=== PATIENT | female | born 1985 | race African-American/Black ===

== ENCOUNTER 2017-08-16 09:06 | Emergency (ER) | payer OTHER | END 2017-08-16 12:25 | disposition home or self-care (01) | LOC: ERS 09:06 | DX: J06.9 Acute upper respiratory infection, unspecified (principal); G43.909 Migraine, unspecified, not intractable, without status migrainosus; F32.9 Major depressive disorder, single episode, unspecified | CPT/HCPCS: 99283 ==

== ENCOUNTER 2017-09-12 12:14 | Inpatient (IN) | payer OTHER ==
[2017-09-12] MEDS ORDERED: Morphine 4 MG/ML VIAL ONE (13:21)
[2017-09-12] MEDS ORDERED: Ondansetron HCl/PF 4 MG/2 ML Vial ONE ×3 (13:21→15:23)
[2017-09-12 13:31] LABS: #Basophils 0.1 thou/uL (0.0-0.2); #Lymphocytes 1.5 thou/uL (1.20-3.40); #Monocytes 0.3 thou/uL (0.11-0.59); %Basophils 1.3 % (0.0-1.0); %Eosinophils 0.6 % (0.0-10.0); %Lymphocytes 25.6 % (21.0-51.0); %Monocytes 5.5 % (0.0-10.0); Hemoglobin 13.2 g/dL (12.0-16.0); Mean Corpuscular HGB CONC 31.8 g/dL (32.0-36.0); Mean Corpuscular Volume 84.9 fl (81.0-99.0); Mean Platelet Volume 11.1 fL (7.4-10.4); Platelet Count 153 thou/uL (130-400); RBC Distribution Width 12.3 % (11.5-14.5); Red Blood Cell (RBC) Count 4.89 mill/uL (4.20-5.40); White Blood Cell (WBC) Count 5.9 thou/uL (4.8-10.8)
[2017-09-12 13:55] LABS: ALT (SGPT) 31 U/L (8-55); AST (SGOT) 20 U/L (5-34); Albumin 4.3 g/dL (3.5-5.0); Alkaline Phosphatase 84 U/L (40-150); Anion Gap 12 mmol/L (10-20); BUN (Urea Nitrogen) 13 mg/dL (7.0-18.7); Bilirubin, Total 0.5 mg/dL (0.2-1.2); Calc. Creatinine Clearance 0 mL/min (70-130); Calcium 9.3 mg/dL (7.8-10.44); Carbon Dioxide 26 mmol/L (22-29); Chloride 106 mmol/L (98-107); Estimated GFR-MDRD Greater than 90; Globulin 3.3 g/dL (2.4-3.5); Glucose 98 mg/dL (70-105); Potassium 3.8 mmol/L (3.5-5.1); Protein, Total 7.6 g/dL (6.0-8.3); Sodium 140 mmol/L (136-145)
[2017-09-12 14:17] LABS: Bilirubin Negative (Negative); Blood, Urine Negative (Negative); Clarity CLEAR (Clear); Glucose, Urine (Dipstick) Negative (Negative); Leukocyte Negative (Negative); Nitrite Negative (Negative); Protein, Urine (Dipstick) 30 mg/dL (Neg-Trace); Specific Gravity, Urine 1.018 (1.002-1.036); pH, Urine 7.5 (5.0-9.0)
[2017-09-12 14:19] LABS: Bacteria/HPF Rare-Few HPF (None Seen); Hyaline Casts/LPF 0-3 HYALINE CAST LPF (0-3 Hyaline); RBC/HPF 0-3 HPF (0-3); Squamous Epithelial 0-3 HPF (0-3); WBC/HPF 0-3 HPF (0-3)
[2017-09-12 14:20] LABS: Pregnancy Test - Urine (BHCG) Negative (Negative); Pregu Control Background? CLEAR/WHITE (CLR/WHITE); Pregu Control Bar Appear? YES (CONTROL BAR); Specific Gravity 1.018 (1.002-1.036)
[2017-09-12] MEDS ORDERED: Fentanyl 250 MCG/5 ML VIAL ONE (14:30)
[2017-09-12] MEDS ORDERED: Famotidine/PF 20 mg/2ml Vial ONE (14:30)
[2017-09-12] MEDS ORDERED: Fentanyl 100 MCG/2 ML VIAL ONE (14:37)
--- NOTE | 2017-09-12 14:50 | RAD ---
RIGHT HUMERUS ONE VIEW: History: 32-year-old female with history of right upper arm deformity. There is a considerably displaced and a ngulated spiral fracture of the distal humeral diaphysis visualized in this single projection. IMPRESSION: Displaced abnormally angulated small fracture of the distal right humeral diaphysis. POS: ARI
--- NOTE | 2017-09-12 14:52 | RAD ---
RIGHT FOREARM TWO VIEWS: FINDINGS: Limited views of the forearm demonstrate no evidence for acute forearm fracture. The small displaced fracture of the distal humeral shaft is only partially visualized. There is a faint linear lucency th rough the distal ulna epiphysis region which I favor to be residual from the epiphysis. I do not thin k that this represents a fracture. There is no associated soft tissue swelling, however, if the patie nt is point tender over this region then a follow up wrist series might be of benefit. IMPRESSION: No evidence for acute forearm fracture. POS: ARI
[2017-09-12] MEDS ORDERED: CEFAZOLIN/Water 2 GM/20 ML SYRINGE ONE (15:04)
--- NOTE | 2017-09-12 15:09 | RAD ---
RIGHT HUMERUS ONE VIEW LIMITED SURVEY History/IMPRESSION: Spiral fracture distal humeral diaphysis is noted with some improvement in the position and alignment from the earlier studies. There is still some foreshortening and angulation deformity. POS: ARI
--- NOTE | 2017-09-12 15:19 | RAD ---
RIGHT HUMERUS ONE VIEW: History: 32-year-old female with history of right humeral injury. Comparison: 09-12-17 FINDINGS: There is again noted to be a displaced spiral fracture of the distal humeral diaphysis with slightly less foreshortening and less angulation deformity than on the prior study. IMPRESSION: Displaced and angulated spiral fracture distal humeral diaphysis but improved in position from the pr ior study. POS: ARI
[2017-09-12] MEDS ORDERED: Glycopyrrolate 0.2 MG/ML 5 ML SYRINGE ONE (15:23)
[2017-09-12] MEDS ORDERED: Lidocaine 1% PF 5 ML VIAL ONE (15:23)
[2017-09-12] MEDS ORDERED: Dexamethasone 20 MG/5 ML VIAL ONE (15:23)
[2017-09-12] MEDS ORDERED: PROPOFOL 200 MG/20 ML VIAL ONE (15:23)
[2017-09-12] MEDS ORDERED: Ketorolac Tromethamine 30 MG/ML VIAL ONE (15:23)
[2017-09-12] MEDS ORDERED: Promethazine HCl 25 MG/ML VIAL SLOW IVP PRN (15:52)
[2017-09-12] MEDS ORDERED: Ondansetron HCl/PF 4 MG/2 ML Vial IVP PRN (15:52)
[2017-09-12] MEDS ORDERED: Promethazine HCl 25 MG/ML VIAL IM PRN (15:52)
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
[2017-09-12] MEDS ORDERED: Meperidine HCl/PF 25 MG/ML VIAL SLOW IVP PRN (16:52)
[2017-09-12] MEDS ORDERED: HYDROmorphone 2 MG/ML VIAL SLOW IVP PRN (16:52)
[2017-09-12] MEDS ORDERED: Ondansetron ODT 4 MG TAB PO PRN (16:57)
[2017-09-12] MEDS ORDERED: Zolpidem Tartrate 5 MG TAB PO PRN (16:57)
[2017-09-12] MEDS ORDERED: HYDROcodone/Acetaminophen 10/325 mg Tablet PO PRN (16:57)
[2017-09-12] MEDS ORDERED: Fentanyl 100 MCG/2 ML VIAL SLOW IVP PRN (17:01)
[2017-09-12] MEDS ORDERED: HYDROmorphone 0.5 MG/0.5 ML SYRINGE ONE (17:28)
--- NOTE | 2017-09-12 17:34 | OP ---
PREOPERATIVE DIAGNOSIS: Humerus fracture, right. POSTOPERATIVE DIAGNOSIS: Humerus fracture, right. SURGEON: Alfonzo Reagan M.D. SURGICAL SCRUB TECH: None. BLOOD LOSS: About 100. SPECIMEN: None. DRAINS: None. COMPLICATIONS: None. DESCRIPTION OF PROCEDURE: After appropriate consent was obtained, the patient was taken to the [facility] where general anesthesia was induced. The patient was placed in left lateral decubitus position . Right arm was prepped and draped in the usual sterile fashion. No tourniquet was used. I made a posterior triceps splitting incision approach. Fracture was identified and removed hematoma and musc le from the bone fragments. Fracture was anatomically reduced and clamped under direct visualization , I placed three lateral to medial and medial to lateral lag screws total. I then used the metaphyse s plate posteriorly to reinforce the repair. X-rays were obtained which showed appropriate reduction and screw length. Irrigation was performed. She was prepped with 0 Vicryl, subcutaneous closed wit h 2-0 Vicryl, the skin was closed with ewelina. The patient was placed in a bulky dressing and a pos terior splint. There were no complications.
--- NOTE | 2017-09-12 18:08 | RAD ---
INTRAOPERATIVE RADIOGRAPHS OF RIGHT HUMERUS: Date: 09-12-17 History: ORIF FINDINGS: The previously noted oblique fracture of the distal right humeral shaft has been treated with a screw and plate fixation. Alignment is normal at the fracture site. IMPRESSION: ORIF as above. POS: VENECIA
[2017-09-12 18:23] VITALS: BMI 30.4
[2017-09-12] MEDS: Sodium Chloride 0.9% 1,000 ML IV SCH (20:52)
[2017-09-12] MEDS: HYDROcodone/Acetaminophen 10/325 mg Tablet PO PRN (20:53)
[2017-09-12] MEDS ORDERED: FLU VACC QS2017-18 36 mo. & older 0.5 ML SYRINGE IM ONE (21:00)
[2017-09-12] MEDS: CEFAZOLIN/Water 2 GM/20 ML SYRINGE SLOW IVP SCH (22:19)
[2017-09-13] MEDS: HYDROcodone/Acetaminophen 10/325 mg Tablet PO PRN ×2 (00:53→05:22)
[2017-09-13 04:23] VITALS: TEMP 98.3
[2017-09-13] MEDS: CEFAZOLIN/Water 2 GM/20 ML SYRINGE SLOW IVP SCH (04:28)
[2017-09-13 07:48] VITALS: BP 122/81
[2017-09-13] MEDS ORDERED: Enoxaparin Sodium 30 MG/0.3 ML SYRINGE SC SCH (09:00)
[2017-09-13] MEDS: Sodium Chloride 0.9% 1,000 ML IV SCH (09:40)
== END 2017-09-13 11:33 | disposition home or self-care (01) | DRG 494 ==
LOC: ERS 12:14 → SURG A 14:28
PROVIDERS: ADMIT Orthopaedic Surgery; ATTEND Orthopaedic Surgery
PROC: 0PSF04Z Reposition Right Humeral Shaft with Internal Fixation Device, Open Approach (ICD-10-PCS; principal; 2017-09-12)
DX: S42.341A Displaced spiral fracture of shaft of humerus, right arm, initial encounter for closed fracture (principal); F32.9 Major depressive disorder, single episode, unspecified; W01.0XXA Fall on same level from slipping, tripping and stumbling without subsequent striking against object, initial encounter; G43.909 Migraine, unspecified, not intractable, without status migrainosus
CPT/HCPCS: 36415; 76001; 80053; 81003; 81015; 81025; 85025; 96361; 96374; 96375; C1713; G0390; J0131; J1100; J1170; J1650; J1885; J2001; J2270; J2405; J2704; J3010; S0028

== ENCOUNTER 2017-10-27 17:35 | Emergency (ER) | payer OTHER ==
[2017-10-27 19:16] LABS: #Basophils 0.1 thou/uL (0.0-0.2); #Eosinphils 0.1 thou/uL (0.0-0.7); #Lymphocytes 2.1 thou/uL (1.20-3.40); #Monocytes 0.3 thou/uL (0.11-0.59); #Neutrophils 3.2 thou/uL (1.40-6.50); %Basophils 1.2 % (0.0-1.0); %Eosinophils 1.9 % (0.0-10.0); %Lymphocytes 36.1 % (21.0-51.0); %Monocytes 5.5 % (0.0-10.0); %Neutrophils 55.2 % (42.0-75.0); Hemoglobin 12.6 g/dL (12.0-16.0); Mean Corpuscular HGB CONC 32.6 g/dL (32.0-36.0); Mean Corpuscular Hemoglobin 27.2 pg (27.0-31.0); Mean Corpuscular Volume 83.4 fl (81.0-99.0); Mean Platelet Volume 10.8 fL (7.4-10.4); Platelet Count 162 thou/uL (130-400); RBC Distribution Width 12.8 % (11.5-14.5); Red Blood Cell (RBC) Count 4.65 mill/uL (4.20-5.40); White Blood Cell (WBC) Count 5.8 thou/uL (4.8-10.8)
[2017-10-27 19:24] LABS: ALT (SGPT) 43 U/L (8-55); AST (SGOT) 23 U/L (5-34); Albumin 4.2 g/dL (3.5-5.0); Alkaline Phosphatase 124 U/L (40-150); Anion Gap 12 mmol/L (10-20); BUN (Urea Nitrogen) 13 mg/dL (7.0-18.7); Bilirubin, Total 0.4 mg/dL (0.2-1.2); Calc. Creatinine Clearance 0 mL/min (70-130); Calcium 9.2 mg/dL (7.8-10.44); Carbon Dioxide 26 mmol/L (22-29); Chloride 106 mmol/L (98-107); Estimated GFR-MDRD Greater than 90; Globulin 2.9 g/dL (2.4-3.5); Glucose 112 mg/dL (70-105); Potassium 3.9 mmol/L (3.5-5.1); Protein, Total 7.1 g/dL (6.0-8.3); Sodium 140 mmol/L (136-145)
[2017-10-27 19:25] LABS: CK (CPK) 118 U/L (29-168); CRP (Inflammatory) Less than 0.50 mg/dL (= or < 0.5)
[2017-10-27] MEDS ORDERED: Morphine 4 MG/ML VIAL ONE (19:50)
--- NOTE | 2017-10-27 20:38 | RAD ---
FRONTAL AND LATERAL IMAGING OF THE RIGHT HUMERUS 10/27/17 COMPARISON: 09/12/17 HISTORY: Recent fracture. FINDINGS: There is lateral screw and plate fixation associated with the mid shaft and distal shaft of the right humerus. There is no evidence for hardware failure, new fracture, or dislocation. IMPRESSION: Evidence of open reduction and internal fixation of previously noted distal right humeral fracture. T he elbow is not well assessed on this exam. POS: VENECIA
== END 2017-10-27 20:58 | disposition home or self-care (01) ==
LOC: ERS 17:35
DX: M25.521 Pain in right elbow (principal); F32.9 Major depressive disorder, single episode, unspecified; G43.909 Migraine, unspecified, not intractable, without status migrainosus
CPT/HCPCS: 80053; 82550; 85025; 85652; 86140; 96374; J2270

== ENCOUNTER 2018-08-07 09:25 | Emergency (ER) | payer OTHER | END 2018-08-07 11:02 | disposition home or self-care (01) | LOC: ERS 09:25 | DX: J20.9 Acute bronchitis, unspecified (principal) | CPT/HCPCS: 87804; 94640; J7620 ==

== ENCOUNTER 2018-11-14 22:55 | Emergency (ER) | payer OTHER ==
--- NOTE | 2018-11-15 00:41 | RAD ---
2 views right humerus. HISTORY: Right humeral injury. AP and lateral views right humerus obtained. The patient's had a previous plates and numerous screws. The previously noted distal right humeral fr acture has healed. No evidence of residual fracture seen. No other bony abnormality seen. IMPRESSION: previous healed fracture with plates and screws in place.
== END 2018-11-15 01:18 | disposition home or self-care (01) ==
LOC: ERS 22:55
DX: M79.621 Pain in right upper arm (principal); G43.909 Migraine, unspecified, not intractable, without status migrainosus; X50.9XXA Other and unspecified overexertion or strenuous movements or postures, initial encounter

== ENCOUNTER 2019-05-01 20:45 | Emergency (ER) | payer OTHER ==
[2019-05-01] MEDS ORDERED: Metoclopramide HCl 10 MG/2 ML VIAL ONE (22:12)
[2019-05-01] MEDS ORDERED: Ketorolac Tromethamine 30 MG/ML VIAL ONE (22:12)
[2019-05-01] MEDS ORDERED: diphenhydrAMINE 50 MG/ML VIAL ONE (22:12)
== END 2019-05-01 23:35 | disposition home or self-care (01) ==
LOC: ERS 20:45
DX: R51 Headache (principal); F32.9 Major depressive disorder, single episode, unspecified
CPT/HCPCS: 96365; 96375; J1200; J1885; J2765

== ENCOUNTER 2019-06-03 21:50 | Emergency (ER) | payer OTHER | END 2019-06-03 23:05 | disposition home or self-care (01) | LOC: ERS 21:50 | DX: J11.1 Influenza due to unidentified influenza virus with other respiratory manifestations (principal) | CPT/HCPCS: 99283 ==

== ENCOUNTER 2019-10-18 20:55 | Emergency (ER) | payer OTHER ==
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
[2019-10-18] MEDS ORDERED: Adacel (T-DAP) 0.5 ML SYRINGE ONE ×2 (21:21→21:36)
[2019-10-18 21:22] LABS: #Basophils 0.1 thou/uL (0.0-0.2); #Lymphocytes 2.9 thou/uL (1.20-3.40); #Monocytes 0.5 thou/uL (0.11-0.59); #Neutrophils 4.8 thou/uL (1.40-6.50); %Basophils 1.7 % (0.0-1.0); %Eosinophils 0.5 % (0.0-10.0); %Lymphocytes 34.4 % (21.0-51.0); %Monocytes 5.7 % (0.0-10.0); %Neutrophils 57.7 % (42.0-75.0); Hemoglobin 11.6 g/dL (12.0-16.0); Mean Corpuscular Hemoglobin 27.5 pg (27.0-31.0); Mean Corpuscular Volume 83.1 fL (78.0-98.0); Mean Platelet Volume 11.8 fL (7.4-10.4); Platelet Count 198 thou/uL (130-400); RBC Distribution Width 12.5 % (11.5-14.5); Red Blood Cell (RBC) Count 4.23 mill/uL (4.20-5.40); White Blood Cell (WBC) Count 8.4 thou/uL (4.8-10.8)
[2019-10-18 21:28] LABS: BHCG - Serum Negative (NEGATIVE); Pregs Control Background? CLEAR/WHITE (CLR/WHITE); Pregs Control Bar Appear? YES (CONTROL BAR)
[2019-10-18 21:43] LABS: ALT (SGPT) 75 U/L (8-55); AST (SGOT) 38 U/L (5-34); Albumin 4.2 g/dL (3.5-5.0); Alkaline Phosphatase 133 U/L (40-110); Anion Gap 21 mmol/L (10-20); BUN (Urea Nitrogen) 18 mg/dL (7.0-18.7); Bilirubin, Total 0.4 mg/dL (0.2-1.2); Calc. Creatinine Clearance 0 mL/min (70-130); Calcium 9.7 mg/dL (7.8-10.44); Carbon Dioxide 18 mmol/L (22-29); Chloride 105 mmol/L (98-107); Estimated GFR-MDRD 87; Globulin 3.5 g/dL (2.4-3.5); Glucose 150 mg/dL (70-105); Protein, Total 7.7 g/dL (6.0-8.3); Sodium 141 mmol/L (136-145)
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
--- NOTE | 2019-10-18 23:12 | RAD ---
FOUR VIEWS OF THE RIGHT ELBOW: 10/18/19 HISTORY: Deep laceration to the elbow with elbow pain. FINDINGS: Three views of the right elbow shows the patient to be status post ORIF of the distal humerus. There is no evidence of acute fracture or dislocation. No degenerative changes are seen. No elbow effusion is present. IMPRESSION: No evidence of acute osseous abnormality. POS: EAA
[2019-10-18] MEDS ORDERED: Lidocaine 1% w/Epinephrine 1:100K 20 ML VIAL ONE (23:22)
== END 2019-10-19 02:02 | disposition home or self-care (01) ==
LOC: ERS 20:55
DX: S01.81XA Laceration without foreign body of other part of head, initial encounter (principal); G43.909 Migraine, unspecified, not intractable, without status migrainosus; F32.9 Major depressive disorder, single episode, unspecified; Y04.0XXA Assault by unarmed brawl or fight, initial encounter
CPT/HCPCS: 12015; 70450; 70486; 71045; 72125; 80053; 84703; 85025; 86850; 86900; 86901; 90471; 90715; 96365; J0690

== ENCOUNTER 2020-03-18 14:29 | Emergency (ER) | payer OTHER ==
[2020-03-18 15:13] LABS: #Basophils 0.1 thou/uL (0.0-0.2); #Eosinphils 0.1 thou/uL (0.0-0.7); #Monocytes 0.3 thou/uL (0.11-0.59); #Neutrophils 2.9 thou/uL (1.40-6.50); %Basophils 1.3 % (0.0-1.0); %Eosinophils 1.8 % (0.0-10.0); %Lymphocytes 37.8 % (21.0-51.0); %Monocytes 5.9 % (0.0-10.0); %Neutrophils 53.2 % (42.0-75.0); Hemoglobin 13.7 g/dL (12.0-16.0); Mean Corpuscular HGB CONC 32.5 g/dL (32.0-36.0); Mean Corpuscular Hemoglobin 26.9 pg (27.0-31.0); Mean Corpuscular Volume 82.9 fL (78.0-98.0); Mean Platelet Volume 12.1 fL (7.4-10.4); Platelet Count 168 thou/uL (130-400); RBC Distribution Width 13.4 % (11.5-14.5); Red Blood Cell (RBC) Count 5.07 mill/uL (4.20-5.40); White Blood Cell (WBC) Count 5.4 thou/uL (4.8-10.8)
[2020-03-18 15:31] LABS: Large Platelets SLIGHT; MDiff Complete? YES; Platelet Morphology Comment Appears Decreased; RBC Morphology Normal
[2020-03-18 15:32] LABS: ALT (SGPT) 34 U/L (8-55); AST (SGOT) 24 U/L (5-34); Albumin 4.4 g/dL (3.5-5.0); Alkaline Phosphatase 95 U/L (40-110); Anion Gap 14 mmol/L (10-20); BUN (Urea Nitrogen) 11 mg/dL (7.0-18.7); Bilirubin, Total 0.6 mg/dL (0.2-1.2); Calc. Creatinine Clearance 0 mL/min (70-130); Calcium 9.4 mg/dL (7.8-10.44); Carbon Dioxide 26 mmol/L (22-29); Chloride 105 mmol/L (98-107); Estimated GFR-MDRD 90; Globulin 3.3 g/dL (2.4-3.5); Glucose 85 mg/dL (70-105); Protein, Total 7.7 g/dL (6.0-8.3); Sodium 141 mmol/L (136-145)
[2020-03-18] MEDS ORDERED: Metoclopramide HCl 10 MG/2 ML VIAL ONE (15:47)
[2020-03-18] MEDS ORDERED: Ketorolac Tromethamine 30 MG/ML VIAL ONE (15:47)
[2020-03-18] MEDS ORDERED: diphenhydrAMINE 50 MG/ML VIAL ONE (15:47)
== END 2020-03-18 16:55 | disposition home or self-care (01) ==
LOC: ERS 14:29
DX: R51 Headache (principal); I10 Essential (primary) hypertension; F43.10 Post-traumatic stress disorder, unspecified; F32.9 Major depressive disorder, single episode, unspecified; Z79.899 Other long term (current) drug therapy
CPT/HCPCS: 36415; 80053; 84484; 85025; 96365; 96375; J1200; J1885; J2765

== ENCOUNTER 2020-04-05 07:35 | Outpatient (CLI) | payer OTHER ==
--- NOTE | 2020-04-05 11:33 | ULT ---
PELVIC ULTRASOUND: HISTORY: Amenorrhea. FINDINGS: Real-time imaging of the pelvis was obtained both transabdominally as well as with an endovaginal pro be. This shows a uterus measuring 6.2 cm in length. The endometrium is not thickened. It measures in the 3 mm range. The left ovary is not visualized. The right ovary is unremarkable. DOPPLER EVALUATION WITH SPECTRAL ANALYSIS: Normal flow is shown to the right ovary. IMPRESSION: 1. Retroverted uterus. 2. Nonvisualization of the left ovary. POS: DARNELL
== END 2020-04-05 07:36 | disposition home or self-care (01) ==
LOC: BICULT 07:35
PROVIDERS: ATTEND Family Medicine
DX: N91.1 Secondary amenorrhea (principal); N85.8 Other specified noninflammatory disorders of uterus
CPT/HCPCS: 76856

== ENCOUNTER 2021-06-14 07:55 | Emergency (ER) | payer OTHER ==
[2021-06-14 11:47] LABS: SARS-CoV-2 NAA Rapid Test DETECTED (NotDetected)
== END 2021-06-14 10:29 | disposition home or self-care (01) ==
LOC: ERS 07:55
DX: U07.1 COVID-19 (principal); B34.9 Viral infection, unspecified; I10 Essential (primary) hypertension; G43.909 Migraine, unspecified, not intractable, without status migrainosus
CPT/HCPCS: 0240U; 99284

== ENCOUNTER 2023-02-23 09:53 | Emergency (ER) | payer OTHER ==
[2023-02-23 10:22] LABS: #Eosinphils 0.1 thou/uL (0.0-0.7); #Monocytes 0.4 thou/uL (0.11-0.59); #Neutrophils 3.7 thou/uL (1.40-6.50); %Basophils 0.7 % (0.0-1.0); %Eosinophils 0.8 % (0.0-10.0); %Lymphocytes 29.3 % (21.0-51.0); %Monocytes 6.4 % (0.0-10.0); %Neutrophils 62.6 % (42.0-75.0); Hemoglobin 13.4 g/dL (12.0-16.0); Mean Corpuscular HGB CONC 31.9 g/dL (32.0-36.0); Mean Corpuscular Hemoglobin 26.4 pg (27.0-31.0); Mean Corpuscular Volume 82.7 fl (78.0-98.0); Mean Platelet Volume 13.2 fL (7.4-10.4); Platelet Count 170 10x3/uL (130-400); RBC Distribution Width 13.8 % (11.5-14.5); Red Blood Cell (RBC) Count 5.08 mill/uL (4.20-5.40); White Blood Cell (WBC) Count 5.9 10x3/uL (4.8-10.8)
[2023-02-23 10:37] LABS: Bacteria/HPF None Seen HPF (None Seen); Bilirubin Negative (Negative); Blood, Urine Negative (Negative); CAUTI Indications for Culture Pelvic or flank pain; Clarity Clear (Clear); Glucose, Urine (Dipstick) Normal (Negative); Ketone, Urine Negative (Negative); Leukocyte Negative Leu/uL (Negative); Nitrite Negative (Negative); Protein, Urine (Dipstick) Negative (Neg-Trace); RBC/HPF 0-3 HPF (0-3); Squamous Epithelial 0-3 HPF (0-3); Urobilinogen Normal mg/dL (Less than 2); WBC/HPF 0-3 HPF (0-3); pH, Urine 5.5 (5.0-9.0)
[2023-02-23] MEDS ORDERED: Morphine 4 MG/ML VIAL ONE (10:37)
[2023-02-23] MEDS ORDERED: Ondansetron PF 4 MG/2 ML Vial ONE (10:37)
[2023-02-23 10:39] LABS: Urine Culture Reflex No No
[2023-02-23 10:42] LABS: Pregnancy Test - Urine (BHCG) Negative (Negative); Pregu Control Background? CLEAR/WHITE (CLR/WHITE); Pregu Control Bar Appear? YES (CONTROL BAR)
[2023-02-23 10:52] LABS: ALT (SGPT) 35 U/L (8-55); AST (SGOT) 23 U/L (5-34); Albumin 4.5 g/dL (3.5-5.0); Alkaline Phosphatase 96 U/L (40-110); Anion Gap 12 mmol/L (10-20); BUN (Urea Nitrogen) 12 mg/dL (7.0-18.7); Bilirubin, Total 0.6 mg/dL (0.2-1.2); Calc. Creatinine Clearance 0 mL/min (70-130); Calcium 9.9 mg/dL (7.8-10.44); Carbon Dioxide 26 mmol/L (22-29); Chloride 105 mmol/L (98-107); Estimated GFR 80; Globulin 3.5 g/dL (2.4-3.5); Glucose 94 mg/dL (70-105); Lipase 10 U/L (8-78); Potassium 3.7 mmol/L (3.5-5.1); Sodium 139 mmol/L (136-145)
== END 2023-02-23 12:05 | disposition home or self-care (01) ==
LOC: ERS 09:53
DX: K29.70 Gastritis, unspecified, without bleeding (principal); I10 Essential (primary) hypertension
CPT/HCPCS: 76705; 80053; 81001; 81025; 83690; 85025; 93005; 96361; 96374; 96375; J2270; J2405

== ENCOUNTER 2024-01-17 18:10 | Emergency (ER) | payer OTHER ==
[2024-01-17] MEDS ORDERED: Acetaminophen 500 MG TAB ONE (18:20)
[2024-01-17] MEDS ORDERED: diphenhydrAMINE 50 MG/ML VIAL ONE (18:20)
[2024-01-17] MEDS ORDERED: Prochlorperazine 10 MG/2 ML VIAL ONE (18:22)
== END 2024-01-17 20:20 | disposition home or self-care (01) ==
LOC: ERS 18:10
DX: G43.909 Migraine, unspecified, not intractable, without status migrainosus (principal); I10 Essential (primary) hypertension
CPT/HCPCS: 96365; 96375; J0780; J1200